=== PATIENT | male | born 1955 | race Caucasian/White ===

== ENCOUNTER 2020-09-30 04:35 | Observation (INO) ==
[2020-09-30] MEDS ORDERED: *HR* OxyCODONE Immed Rel 5 MG TABLET PO ONE (04:55)
[2020-09-30 05:46] LABS: Basophils # 0.1 K/mcL (0.0-0.2); Basophils % 0.7 %; Eosinophils # 0.2 K/mcL (0.0-0.6); Eosinophils % 2.8 %; Hematocrit 40.5 % (37.5-50.1); Hemoglobin 13.3 g/dL (12.9-16.9); Immature Granulocytes % 0.3 % (0-4); Lymphocytes # 1.9 K/mcL (0.6-4.6); Lymphocytes % 28.3 %; Mean Corpuscular HGB Conc 32.8 g/dL (31.6-35.5); Mean Corpuscular Hemoglobin 28.9 pg (28.0-33.3); Mean Corpuscular Volume 87.9 fL (83.0-100.0); Mean Platelet Volume 10.7 fL (9.4-12.4); Monocytes # 0.5 K/mcL (0.0-1.3); Monocytes % 7.2 %; Neutrophils # 4.1 K/mcL (1.6-8.9); Platelet Count 184 K/mcL (140-400); Red Blood Count 4.61 M/mcL (4.19-5.50); Red Cell Distribution Width 14.4 % (11.5-14.5); Segmented Neutrophils % 60.7 %; White Blood Count 6.8 K/mcL (4.3-11.1)
[2020-09-30 05:52] LABS: Bilirubin,Urine Negative (Negative); Blood,Urine Large (Negative); Clarity,Urine Turbid (Clear); Color,Urine Light-Yellow (Yellow); Glucose,Urine (UA) Normal (Normal); Ketones,Urine Negative (Negative); Leukocyte Esterase,Urine Trace (Negative); Nitrite,Urine Negative (Negative); Protein,Urine Trace mg/dL (Neg-Trace); RBC,Urine TNTC per hpf (0-3); Specific Gravity,Urine 1.018 (1.010-1.025); Urobilinogen,Urine Normal (Normal); WBC,Urine 30-50 per hpf (0-3)
[2020-09-30 06:08] LABS: BUN/Creatinine Ratio 16 (6-26); Blood Urea Nitrogen 13 mg/dL (8-23); Calcium 9.3 mg/dL (8.6-10.3); Carbon Dioxide 23 mEq/L (23-29); Chloride 106 mEq/L (98-107); Glucose 138 mg/dL (70-105); Osmolality,Calculated 288 (280-300); Potassium 3.9 mEq/L (3.5-5.1); Sodium 138 mEq/L (136-145); eGFR For African Americans > 60 (> 60); eGFR For Non-African Americans > 60 (> 60)
[2020-09-30] MEDS ORDERED: cefTRIAXone 1,000 MG in 0.9 % Sodium Chloride Mini Bag 100 ML IVPB ONE (07:11)
[2020-09-30] MEDS ORDERED: Naloxone 0.4 MG/ML INJ IVP PRN ×2 (07:41→10:52)
[2020-09-30] MEDS ORDERED: Ondansetron 4 MG/2 ML VIAL IVP PRN ×2 (07:41→10:52)
[2020-09-30] MEDS: 0.9 % Sodium Chloride 1,000 ML IVC SCH ×2 (08:56→14:47)
[2020-09-30] MEDS ORDERED: Isovue-300 50ML VIAL ONE (10:03)
[2020-09-30] MEDS ORDERED: *HR* FentaNYL (PF) 100 MCG/2 ML VIAL ONE (10:29)
[2020-09-30] MEDS ORDERED: *HR* Propofol 200 MG/20 ML VIAL IVP ONE (10:29)
[2020-09-30] MEDS ORDERED: Ondansetron 4 MG/2 ML VIAL ONE (10:31)
[2020-09-30] MEDS ORDERED: Lidocaine -MPF 2% 2 ML VIAL ONE (10:31)
[2020-09-30 10:42] LABS: Influenza A PCR Negative (Negative); Influenza B PCR Negative (Negative); Resp. Syncytial Virus PCR Negative (Negative); SARS-CoV-2 by PCR (In House) Negative (Negative)
[2020-09-30] MEDS ORDERED: Albuterol 2.5 MG/3 ML NEBULIZER IH PRN (10:52)
[2020-09-30] MEDS ORDERED: Nitroglycerin 0.4 MG TAB.SUBL SL PRN (10:52)
[2020-09-30] MEDS ORDERED: *HR* HYDROmorphone (PF) 1 MG/ML SYRINGE IVP PRN (10:52)
[2020-09-30] MEDS ORDERED: *HR* FentaNYL (PF) 100 MCG/2 ML VIAL IVP PRN (10:52)
[2020-09-30] MEDS ORDERED: Ketorolac 30 MG/ML VIAL ONE (11:14)
[2020-09-30] MEDS ORDERED: EPHEDrine 50 MG/ML VIAL ONE (11:14)
[2020-09-30] MEDS ORDERED: Lidocaine Jelly 6ml 1 APPL/6 ML JEL.PF.APP ONE (11:19)
[2020-09-30] MEDS: *HR* OxyCODONE Immed Rel 5 MG TABLET PO PRN ×2 (14:47→20:05)
[2020-09-30] MEDS: *HR* Heparin 5,000 UNIT/ML VIAL SQ SCH ×2 (18:08→20:06)
[2020-09-30] MEDS ORDERED: Lido/Epi/Tetra Gel 2 ML SYRINGE TP ONE (19:45)
[2020-10-01] MEDS: *HR* OxyCODONE Immed Rel 5 MG TABLET PO PRN (05:58)
[2020-10-01] MEDS: *HR* Heparin 5,000 UNIT/ML VIAL SQ SCH (06:24)
[2020-10-01] MEDS ORDERED: cefTRIAXone 1,000 MG in Water for inj. (sterile) 10 ML IVP SCH (09:00)
[2020-10-01 09:22] LABS: BUN/Creatinine Ratio 17 (6-26); Blood Urea Nitrogen 14 mg/dL (8-23); Calcium 9.1 mg/dL (8.6-10.3); Carbon Dioxide 24 mEq/L (23-29); Chloride 107 mEq/L (98-107); Glucose 110 mg/dL (70-105); Osmolality,Calculated 287 (280-300); Potassium 4.7 mEq/L (3.5-5.1); Sodium 138 mEq/L (136-145); eGFR For African Americans > 60 (> 60); eGFR For Non-African Americans > 60 (> 60)
[2020-10-01 09:23] LABS: Hematocrit 38.2 % (37.5-50.1); Hemoglobin 12.9 g/dL (12.9-16.9)
[2020-10-01 15:59] VITALS: BP 139/86; PULSE 55; TEMP 97.6; O2SAT 99
== END 2020-10-01 16:49 | disposition home or self-care (01) ==
LOC: CDU 04:35 → EMEROOARM 04:35 → CDU 08:31
PROVIDERS: ADMIT Internal Medicine; ATTEND Internal Medicine